=== PATIENT | male | born 1975 | race Caucasian/White ===

== ENCOUNTER 2018-12-29 06:24 | Emergency (ER) | payer SELFPAY ==
[~2018-12-29] VITALS: Ht 177.8 cm; Wt 153.6 kg
[2018-12-29 06:30] VITALS: Ht 177.8 cm; Wt 153.6 kg
[2018-12-29] MEDS ORDERED: LISINOPRIL-HCT1 EAC8 PO (06:31)
[2018-12-29] MEDS ORDERED: COLCRYS0.6 MG PO (06:32)
[2018-12-29] MEDS ORDERED: INDOCIN25 MG PO (06:32)
[2018-12-29] MEDS ORDERED: K-TAB10 MEQ PO (06:32)
[2018-12-29] MEDS ORDERED: LASIX20 MG PO (06:32)
[2018-12-29 07:05] LABS: BASOPHILS 0.3 % (0-2); EOSINOPHILS 2.2 % (0-7); HEMATOCRIT 42.9 % (42.0-54.0); HEMOGLOBIN 14.6 g/dL (13.5-17.5); IMMATURE GRANULOCYTES 0.1 % (0-5); LYMPHOCYTES 17.7 % (15-50); MCH 29.3 pg (26.0-34.0); MCV 86.1 fL (80.0-100.0); MEAN PLATELET VOLUME 9.5 fL (7.4-10.4); MONOCYTES 4.4 % (2-11); NEUTROPHILS 75.3 % (40-80); PLATELET COUNT 215 10x3/uL (130-400); RBC 4.98 10x6/uL (4.20-6.10); RDW 12.5 % (11.5-14.5); WBC 7.3 10x3/uL (4.8-10.8)
[2018-12-29 07:16] LABS: APPEARANCE CLEAR (CLEAR); BILIRUBIN NEGATIVE (NEGATIVE); COLOR YELLOW (YELLOW); GLUCOSE NEGATIVE (NEGATIVE); KETONE NEGATIVE (NEGATIVE); NITRITE NEGATIVE (NEGATIVE); PROTEIN NEGATIVE (NEGATIVE); UROBILINOGEN NORMAL (NORMAL)
[2018-12-29 07:21] LABS: ALBUMIN 3.5 g/dL (3.4-5.0); ALKALINE PHOSPHATASE 84 U/L (46-116); ALT (SGPT) 63 U/L (10-68); BILIRUBIN - TOTAL 0.75 mg/dL (0.2-1.3); CALC OSMOLALITY 279 mosm/kg (275-300); CALCIUM 9.5 mg/dL (8.5-10.1); CARBON DIOXIDE 32.4 mmol/L (21.0-32.0); CHLORIDE - SERUM 103 mmol/L (98-107); GLUCOSE 96 mg/dL (74-106); POTASSIUM - SERUM 4.1 mmol/L (3.5-5.1); PROTEIN - SERUM 7.3 g/dL (6.4-8.2); SODIUM 140 mmol/L (136-145); UREA NITROGEN 14 mg/dL (7-18); eGFR NON AFRICAN AMERICAN 87 mL/min (90-120)
[2018-12-29 07:24] LABS: AMYLASE - SERUM 32 U/L (25-115); LIPASE 241 U/L (73-393); TROPONIN-I < 0.017 ng/mL (0.000-0.060)
[2018-12-29] MEDS ORDERED: HYDROCODON-ACE1 EAC7 PO (10:19)
[2018-12-29 10:47] VITALS: BP 150/76
== END 2018-12-29 10:49 | disposition home or self-care (01) ==
LOC: D.ER 06:24
PROVIDERS: Family Medicine
DX: R10.11 Right upper quadrant pain (principal)

== ENCOUNTER 2019-11-01 13:02 | Emergency (ER) | payer SELFPAY ==
[~2019-11-01 13:02] MED LIST: COLCRYS0.6 MG PO; HYDROCODON-ACE1 EAC7 PO; INDOCIN25 MG PO; K-TAB10 MEQ PO; LASIX20 MG PO; LISINOPRIL-HCT1 EAC8 PO
[2019-11-01 13:10] VITALS: Ht 177.8 cm
[2019-11-01] MEDS ORDERED: CYCLOBENZAPRINE10 MG (14:32)
[2019-11-01] MEDS ORDERED: CARDURA2 MG PO (14:34)
[2019-11-01 14:57] LABS: HEMATOCRIT 40.6 % (42.0-54.0); HEMOGLOBIN 13.3 g/dL (13.5-17.5); LYMPHOCYTES 30.2 % (15-50); MCH 28.4 pg (26.0-34.0); MCHC 32.8 g/dL (31.0-37.0); MCV 86.8 fL (80.0-100.0); MEAN PLATELET VOLUME 9.1 fL (7.4-10.4); PLATELET COUNT 224 10x3/uL (130-400); RBC 4.68 10x6/uL (4.20-6.10); RDW 12.3 % (11.5-14.5); WBC 5.9 10x3/uL (4.8-10.8)
[2019-11-01 15:21] LABS: CALC OSMOLALITY 282 mosm/kg (275-300); CARBON DIOXIDE 33.9 mmol/L (21.0-32.0); CHLORIDE - SERUM 104 mmol/L (98-107); GLUCOSE 111 mg/dL (74-106); POTASSIUM - SERUM 3.9 mmol/L (3.5-5.1); SODIUM 141 mmol/L (136-145); UREA NITROGEN 16 mg/dL (7-18); eGFR NON AFRICAN AMERICAN 87 mL/min (90-120)
[2019-11-01 15:28] LABS: ALBUMIN 3.7 g/dL (3.4-5.0); ALKALINE PHOSPHATASE 80 U/L (30-120); ALT (SGPT) 77 U/L (10-68); BILIRUBIN - TOTAL 0.55 mg/dL (0.2-1.3); PROTEIN - SERUM 7.2 g/dL (6.4-8.2)
[2019-11-01 16:33] VITALS: BP 122/78
== END 2019-11-01 16:33 | disposition home or self-care (01) ==
LOC: D.ER 13:02
PROVIDERS: Emergency Medicine
DX: I10 Essential (primary) hypertension (principal)